=== PATIENT | male | born 1945 | race Caucasian/White ===

== ENCOUNTER → 2016-08-19 | Outpatient (CLI) | payer MEDICARE, OTHER ==
[~2016-08-19] MED LIST: ALLERGY10 M1 PO; ANEXSIA 5/325 M1 TA1 PO; FLOMAX0.4 M1 PO; HYDROXYZINE PA100 MG PO; PROVENT INH; SINGULAIR PO; SPIRIVA18 MCG INH
--- NOTE | ~2016-08-19 | CT55 ---
[facility] A Service of [facility] RADIOLOGY TEXT RESULTS PATIENT: BAILEY ARCE LOCATION: [facility] : 47 UNIT #: [id number] AGE: [address]: Tommy Wallace MD SEX: M ORDER DR: [id number] [facility] [address] [place], [place] [address] [id number] O MR#: [id number] [facility] #: [id number] NAME: BAILEY ARCE : 1945 SEX: M STUDY DATE/TIME: 08/19/2016 11:45 UNIT: [facility] ROOM: STUDY DESCRIPTION: CT Chest W Con Attending Physician: Tommy Wallace M.D. Referring Physician: Tommy Wallace M.D. Ordering Physician: Sera Wallace M.D. Primary Care Physician: Nena Minor M.D. MEDICAL IMAGING REPORT This report is preliminary unless electronic signature is present EXAM CT chest with contrast. INDICATIONS Gallbladder cancer. Staging. Observation for metastatic disease. PROCEDURE Contrast-enhanced CT chest. This CT exam was performed with one or more of the following radiation dose reduction techniques: automatic exposure control, adjustment of mA and/or kV according to patient size, and iterative reconstruction. COMPARISON Head CT from 05/05/2016. FINDINGS Emphysema and subpleural fibrosis in both lungs. Likely scarring or atelectasis in the posterior right upper lobe and in the superior segment of the right lower lobe. These linear opacities are increased compared with the prior head CT. Small bilateral pleural effusions. No suspicious nodule. There are minimally prominent bilateral hilar and mediastinal lymph nodes. This appearance is very similar to the prior head CT. No aggressive appearing bone lesion. IMPRESSION 1. No convincing evidence for metastatic disease in the chest. 2. Severe emphysema, with areas of pulmonary fibrosis. 3. 2 areas of linear opacity in the right lung are detailed above and favored to represent areas of scarring or chronic atelectasis. 4. Small bilateral pleural effusions. 5. Mildly prominent mediastinal and hilar lymph nodes are nonspecific presumed reactive. They are similar in appearance to the previous STS. [facility] A Service of [facility] RADIOLOGY TEXT RESULTS PATIENT: BAILEY ARCE LOCATION: [facility] : [birth year] UNIT #: [id number] AGE: [address]: Tommy Wallace MD SEX: M ORDER DR: head CT. Dictated by... Bud Damon M.D. THIS IS AN ELECTRONICALLY VERIFIED REPORT Bud Damon M.D. at 08/20/2016 2:03 PM EED/pamela TD: 08/19/2016 16:33 JOB #: [id number] MEDICAL IMAGING REPORT Page 1 of 1 COPY
--- NOTE | ~2016-08-19 | CT5 ---
[facility] A Service [facility] RADIOLOGY TEXT RESULTS PATIENT: BAILEY ARCE LOCATION: [facility] : 47 UNIT #: [id number] AGE: [address]: Tommy Wallace MD SEX: M ORDER DR: [id number] [address] [address] [id number] O MR#: [id number] Acc #: [id number] NAME: BAILEY ARCE : 1945 SEX: M STUDY DATE/TIME: 08/19/2016 11:45 UNIT: [facility] ROOM: STUDY DESCRIPTION: CT Abdomen W Cont Attending Physician: Tommy Wallace M.D. Referring Physician: Tommy Wallace M.D. Ordering Physician: Sera Wallace M.D. Primary Care Physician: Nena Minor M.D. MEDICAL IMAGING REPORT This report is preliminary unless electronic signature is present EXAM CT abdomen with contrast. INDICATION Malignant neoplasm of the gallbladder. Observation for metastatic disease. PROCEDURE Contrast-enhanced CT abdomen. This CT exam was performed with one or more of the following radiation dose reduction techniques: automatic exposure control, adjustment of mA and/or kV according to patient size, and iterative reconstruction. COMPARISON 02/23/2016 FINDINGS Refer to the separately dictated CT of the chest for thoracic findings. Previous cholecystectomy. There is no liver mass or abnormal mass in the gallbladder fossa. The spleen, kidneys, adrenal glands, pancreas are unremarkable. Small to moderate sized hiatal hernia. Bowel loops are nondilated. Moderate colonic stool. No pathologically enlarged abdominal lymph nodes. No aggressive appearing bone lesion. IMPRESSION Prior cholecystectomy. No evidence for residual disease or metastatic disease in the abdomen. [facility] A Service [facility] RADIOLOGY TEXT RESULTS PATIENT: BAILEY ARCE LOCATION: [facility] : 47 UNIT #: [id number] AGE: [address]: Tommy Wallace MD SEX: M ORDER DR: Dictated by... Bud Damon M.D. THIS IS AN ELECTRONICALLY VERIFIED REPORT Bud Damon M.D. at 08/20/2016 2:03 PM JANNETTED/[email or web address] TD: 08/19/2016 16:30 JOB #: [id number] MEDICAL IMAGING REPORT Page 1 of 1 COPY
[2016-08-19 20:31] LABS: POC - CREATININE 0.86 mg/dL (0.64-1.27); POC - GFR >60.0 mL/min (>60)
== END | disposition home or self-care (01) ==
LOC: CCAT 10:13
PROVIDERS: Internal Medicine Medical Oncology
DX: C67.9 Malignant neoplasm of bladder, unspecified (principal); J43.9 Emphysema, unspecified; J84.10 Pulmonary fibrosis, unspecified; R91.8 Other nonspecific abnormal finding of lung field; J90 Pleural effusion, not elsewhere classified; Z90.49 Acquired absence of other specified parts of digestive tract; Z85.09 Personal history of malignant neoplasm of other digestive organs
CPT/HCPCS: 71260; 74160; 82565; Q9967